=== PATIENT | male | born 1990 | race African-American/Black ===

== ENCOUNTER 2021-02-06 03:45 | Emergency (ER) | payer OTHER ==
[~2021-02-06] VITALS: Ht 193 cm; Wt 87.8 kg
[2021-02-06] MEDS ORDERED: FAMOTIDINE 20MG/2ML VIAL IV ONE (04:45)
[2021-02-06] MEDS ORDERED: KETOROLAC 15MG/ML VIAL IV ONE (04:45)
[2021-02-06] MEDS ORDERED: ONDANSETRON HCL 4MG/2ML INJ IV STA (04:45)
[2021-02-06] MEDS ORDERED: SODIUM CHLORIDE 0.9% 1,000 ML IV ONE (04:45)
[2021-02-06 04:51] LABS: HEMATOCRIT. 44.6 % (42.0-52.0); HEMOGLOBIN. 15.7 g/dL (14.0-18.0); MEAN CORPUSCULAR HEMOGLOBIN 32.5 pg (28.0-32.0); MEAN CORPUSCULAR VOLUME 92.2 fL (80.0-94.0); MEAN PLATELET VOLUME 8.7 fl (7.4-10.4); PLATELET 186 x1000/uL (130-400); RED BLOOD CELL COUNT 4.84 mill/uL (4.7-6.1); RED CELL DISTRIBUTION WIDTH 12.8 % (11.6-14.6)
[2021-02-06 04:58] LABS: CHLORIDE 105 mEq/L (98-107)
[2021-02-06 05:10] LABS: PLATELET ESTIMATE NORMAL
[2021-02-06 06:29] LABS: CLARITY URINE CLEAR (CLEAR); COLOR URINE DARK YELLOW (YELLOW); KETONES URINE 2+ (NEGATIVE); LEUKOCYTE ESTERASE URINE TRACE (NEGATIVE); NITRITE URINE NEGATIVE (NEGATIVE); OCCULT BLOOD URINE NEGATIVE (NEGATIVE); PROTEIN URINE 1+ (NEGATIVE); SPECIFIC GRAVITY URINE 1.031 (1.005-1.030)
[2021-02-06 06:50] VITALS: BP 117/72
== END 2021-02-06 07:04 | disposition home or self-care (01) ==
LOC: ER 03:45
DX: R10.9 Unspecified abdominal pain (principal); J45.909 Unspecified asthma, uncomplicated
CPT/HCPCS: 36415; 74176; 80053; 81003; 83690; 85025; 96361; 96374; 96375; 99284; J1885; J2405; J3490; J7030

== ENCOUNTER 2021-02-06 21:49 | Emergency (ER) | payer OTHER ==
[~2021-02-06] VITALS: Ht 182.9 cm; Wt 84.5 kg
[2021-02-06] MEDS ORDERED: SILVER SULFADIAZINE 1% CREAM 50GM TOP SCH (23:00)
[2021-02-06 23:49] LABS: CHLORIDE 106 mEq/L (98-107)
[2021-02-06 23:52] LABS: BASOPHILS % 0.3 % (0.0-2.0); HEMATOCRIT. 40.8 % (42.0-52.0); HEMOGLOBIN. 14.6 g/dL (14.0-18.0); LYMPHOCYTES % 20.9 % (20.0-50.0); MEAN CORPUSCULAR HEMOGLOBIN 33.1 pg (28.0-32.0); MEAN CORPUSCULAR VOLUME 92.7 fL (80.0-94.0); MEAN PLATELET VOLUME 8.8 fl (7.4-10.4); NEUTROPHILS % 68.8 % (40.0-76.0); PLATELET 195 x1000/uL (130-400); RED CELL DISTRIBUTION WIDTH 12.8 % (11.6-14.6)
[2021-02-07] MEDS ORDERED: POTASSIUM CHLORIDE 20MEQ TABLET SR PO NR (01:30)
[2021-02-07 03:26] VITALS: BP 102/56
== END 2021-02-07 03:32 | disposition home or self-care (01) ==
LOC: ER 21:49
DX: K52.9 Noninfective gastroenteritis and colitis, unspecified (principal)
CPT/HCPCS: 36415; 74176; 80053; 85025; 99284